=== PATIENT | female | born 1935 | race Caucasian/White ===

== ENCOUNTER 2022-07-06 11:00 | Day surgery (SDC) | payer MEDICARE ==
[~2022-07-06] VITALS: Ht 147.3 cm; Wt 62.2 kg
[2022-07-06] MEDS ORDERED: CITRACAL-D3 ER1 EACH PO (12:10)
[2022-07-06] MEDS ORDERED: ASPIRIN E.C. 8181 MG PO (12:10)
[2022-07-06] MEDS ORDERED: LASIX 20MG TABL20 MG PO (12:11)
[2022-07-06] MEDS ORDERED: OCUVITE EYE HE1 EACH PO (12:12)
[2022-07-06] MEDS ORDERED: MYRBETR50MG PO (12:12)
[2022-07-06] MEDS ORDERED: VITAMIN D362.5 MCG PO (12:15)
[2022-07-06] MEDS ORDERED: MASON NATURAL1200 MG PO (12:16)
[2022-07-06] MEDS ORDERED: FOSAMAX 70MG TA70 MG PO (12:17)
[2022-07-06] MEDS ORDERED: LOPRESSOR 225 MG/TAB PO (12:19)
[2022-07-06] MEDS ORDERED: KLOR-CON SPRIN10 MEQ PO (12:21)
[2022-07-06] MEDS ORDERED: LEVSIN 0.10.125 MG/T PO (12:22)
[2022-07-06] MEDS ORDERED: NASACORT OTC NS (12:25)
[2022-07-06] MEDS ORDERED: BION TEARS EYE1 EAC1 OP (12:27)
[2022-07-06] MEDS ORDERED: PRIL40 PO (12:27)
[2022-07-06 13:15] VITALS: BP 118/61; PULSE 56; TEMP 98.4
[2022-07-06 13:30] VITALS: BP 170/64; PULSE 58
[2022-07-06 13:45] VITALS: BP 170/63; PULSE 61
[2022-07-06 15:30] VITALS: BP 175/69; PULSE 69; TEMP 97.5
--- NOTE | 2022-07-06 16:09 | NUR ---
1315: PATIENT TO BAY 3 PER CART FROM PACU. REPORT RECEIVED FROM SPD MANAGER. PATIENT ALERT AND ORIETNED. VS STABLE. PATIENT DENIES ANY NAUSEA OR VOMITING. GIVEN ICE CHIPS AT THIS TIME. RESTING IN COT. GRAND-DAUGHTER AT BEDSIDE. CALL LIGHT IN REACH. 1330: PATIENT REMAINS ALERT AND ORIENTED. VS STABLE. TOLERATING ICE CHIPS AND REQUESTING CRACKERS. PATIENT DENIES ANY NAUSEA OR PAIN AT THIS TIME. RESTING IN COT. CALL LIGHT IN REACH. GRAND-DAUGHTER REMAINS AT BEDSIDE. 1345: PATIENT REMAINS ALERT AND ORIENTED. VS STABLE. PATIENT TOLERATING ICE CHIPS AND FLEX CRACKERS. PATIENT CONTINUES TO DENY PAIN OR NAUSEA. RESTING IN COT. CALL LIGHT IN REACH. GRAND-DAUGHTER REMAINS AT BEDSIDE. 1355: DR. YEPEZ WAS IN TO SPEAK WITH PATIENT GRAND-DAUGHTER PRIOR TO PATIENT ARRIVING ON OUR UNIT. DISCHARGE EDUCATION COMPLETED. PATIENT STATED UNDERSTANDING OF HOME AND FOLLOW-UP CARE. DISCHARGE PAPERWORK GIVEN TO PATIENT. IV DC'D AT THIS TIME. PATIENT GRAND-DAUGHTER TO ASSIST PATIENT WITH DRESSING. 1400: PATIENT AMBULATED TO BATHROOM WITH WALKER AND URINATED. PATIENT OFF UNIT AT THIS TIME. PATIENT DISCHARGED TO HOME WITH GRAND-DAUGHTER PER PERSONAL VEHICLE.
== END 2022-07-06 14:00 ==
LOC: SDCO 11:00
DX: N39.41 Urge incontinence (principal)
CPT/HCPCS: A4215; J0585; J0690; J1100; J2405; J2704; J3010